=== PATIENT | female | born 1980 | race Caucasian/White ===

== ENCOUNTER → 2018-07-06 | Outpatient (CLI) | payer BC ==
[~2018-07-06] MED LIST: ANTIBIOTIC; ASPIRIN 32325 MG/TAB PO; DROSPIRENONE; GLUCOSAMINE/MSM1 TAB PO; LOFIBRA134 MG PO; OMEGA-3 FISH1200 MG PO; SIMCOR 1000 MG-1 TER PO; ZOFRAN ODT4 MG PO; [UNRECOGNIZED DRUG - MIXTURE]
== END ==
LOC: COL.RAD 12:36
DX: E04.1 Nontoxic single thyroid nodule (principal)

== ENCOUNTER → 2021-02-12 | Outpatient (CLI) | payer BC | LOC: COL.LAB 16:50 | DX: R05 Cough (principal) ==

== ENCOUNTER 2021-12-21 07:09 | Outpatient (CLI) | payer BC ==
[~2021-12-21] VITALS: Ht 170.2 cm; Wt 116.4 kg
[2021-12-21] MEDS ORDERED: GLUCOPHAGE1000 MG PO (07:51)
[2021-12-21] MEDS ORDERED: PRINIVIL20 MG PO (07:52)
[2021-12-21] MEDS ORDERED: TRICOR145 MG PO (07:52)
[2021-12-21] MEDS ORDERED: CRESTOR 10MG10 MG PO (07:53)
[2021-12-21] MEDS ORDERED: ALLEGRA 180MG180 MG PO (07:53)
[2021-12-21 07:54] VITALS: BP 136/80; PULSE 80; TEMP 98
[2021-12-21 08:20] LABS: BASO # 0.1 K/mm3 (0.0-0.2); BASO % 1.1 % (0.0-2.0); EOS # 0.4 K/mm3 (0.0-0.7); EOS % 5.6 % (0.0-4.0); GRAN # 3.8 K/mm3 (1.4-6.5); GRAN % 51.4 % (42.2-75.2); LYMPH # 2.5 K/mm3 (1.2-3.4); LYMPH % 33.7 % (20.0-51.0); MEAN CELL VOLUME 86 fl (80.0-100.0); MEAN CORPUSCULAR HEMOGLOBIN 28 pg (27-31); MEAN CORPUSCULAR HGB CONC 33 g/dl (33.0-37.0); MEAN PLATELET VOLUME 8.8 fl (7.4-10.4); MONO # 0.6 K/mm3 (0.1-0.6); MONO % 7.9 % (1.7-9.3); PLATELET COUNT 445 K/mm3 (130-400); RED BLOOD COUNT 4.22 M/mm3 (4.10-5.30); REDCELL DISTRIBUTION WIDTH-CV 12.3 % (11.5-14.5)
[2021-12-21 08:30] LABS: HEMATOCRIT 36.1 % (37.0-47.0)
[2021-12-21 09:40] VITALS: BP 109/58; PULSE 74; TEMP 98.3
--- NOTE | 2021-12-21 09:40 | NUR ---
0940: Patient arrived back into [facility] from PACU. Report received from STEPHEN Pena. Patient drowsy but arousable. Patient to lay flat for 10 minutes. Vital signs stable on room air. at bedside. Call light within reach. 0950: Patient sitting up. Requesting blueberry muffin and water. Denies pain or nausea at this time. 1010: Patient continues to do well denies pain or nausea. Tolerated food and drink well. Vital signs stable on room air. 1020: Patient meets discharge criteria. IV removed without complications. Went through discharge instructions with patient and . Questions answered. Patient to get dressed with assistance from . 1030: Patient escorted to patient entrance via wheelchair. along side. Patient got into personal vehicle and left in the care of her , Freddie.
[2021-12-21 09:55] VITALS: BP 114/65; PULSE 68
[2021-12-21 10:10] VITALS: BP 108/61; PULSE 69
== END 2021-12-21 10:35 | disposition home or self-care (01) ==
LOC: SDCO 07:09
PROVIDERS: Pathology Anatomic Pathology & Clinical Pathology
DX: D47.4 Osteomyelofibrosis (principal); D72.829 Elevated white blood cell count, unspecified
CPT/HCPCS: J2704; J3010; J7120

== ENCOUNTER → 2023-06-16 | Outpatient (CLI) | payer BC ==
[~2023-06-16] MED LIST changes: +ALLEGRA 180MG180 MG PO; +CRESTOR 10MG10 MG PO; +GLUCOPHAGE1000 MG PO; +PRINIVIL20 MG PO; +TRICOR145 MG PO
== END ==
LOC: MC.RAD 08:00
DX: Z12.31 Encounter for screening mammogram for malignant neoplasm of breast (principal)

== ENCOUNTER → 2024-01-20 | Outpatient (CLI) | payer BC ==
[~2024-01-20] MED LIST changes: +Iohexol 300 - 100 ML VIAL IV ONE; +NS 100 ML IV SCH
[2024-01-20 14:34] LABS: BASO # 0.1 K/mm3 (0.0-0.2); BASO % 0.9 % (0.0-2.0); EOS # 1.6 K/mm3 (0.0-0.7); EOS % 13.4 % (0.0-4.0); GRAN # 5.5 K/mm3 (1.4-6.5); GRAN % 47.3 % (42.2-75.2); HEMATOCRIT 37.4 % (37.0-47.0); HEMOGLOBIN 12.8 g/dl (12.5-16.0); LYMPH # 3.4 K/mm3 (1.2-3.4); MEAN CELL VOLUME 88 fl (80.0-100.0); MEAN CORPUSCULAR HEMOGLOBIN 30 pg (27-31); MEAN CORPUSCULAR HGB CONC 34 g/dl (33.0-37.0); MEAN PLATELET VOLUME 8.9 fl (7.4-10.4); MONO # 1.1 K/mm3 (0.1-0.6); MONO % 9.1 % (1.7-9.3); PLATELET COUNT 351 K/mm3 (130-400); RED BLOOD COUNT 4.25 M/mm3 (4.10-5.30)
== END ==
LOC: COL.RAD 13:03
PROVIDERS: Physician Assistant
DX: H02.846 Edema of left eye, unspecified eyelid (principal)
CPT/HCPCS: Q9967

== ENCOUNTER 2024-02-05 09:43 | Emergency (ER) | payer BC ==
[~2024-02-05] VITALS: Ht 170.2 cm; Wt 118.2 kg
[~2024-02-05 09:43] MED LIST changes: -Iohexol 300 - 100 ML VIAL IV ONE; -NS 100 ML IV SCH
[2024-02-05 11:44] LABS: ALBUMIN 3.5 g/dL (3.5-5.0); BILIRUBIN,TOTAL 0.3 mg/dL (0.2-1.2); CALCIUM 9.3 mg/dL (8.4-10.2); CREATININE, serum 0.63 mg/dL (0.57-1.11); POTASSIUM 4.2 mEq/L (3.5-4.5); TOTAL PROTEIN 6.5 g/dl (6.2-8.1)
[2024-02-05 12:15] LABS: BASO # 0.1 K/mm3 (0.0-0.2); BASO % 0.7 % (0.0-2.0); EOS # 1.2 K/mm3 (0.0-0.7); EOS % 9.6 % (0.0-4.0); GRAN # 7.1 K/mm3 (1.4-6.5); GRAN % 55.8 % (42.2-75.2); HEMATOCRIT 38.6 % (37.0-47.0); HEMOGLOBIN 12.5 g/dl (12.5-16.0); LYMPH # 3.2 K/mm3 (1.2-3.4); LYMPH % 25.1 % (20.0-51.0); MEAN CELL VOLUME 93 fl (80.0-100.0); MEAN CORPUSCULAR HEMOGLOBIN 30 pg (27-31); MEAN CORPUSCULAR HGB CONC 32 g/dl (33.0-37.0); MEAN PLATELET VOLUME 8.7 fl (7.4-10.4); MONO % 7.9 % (1.7-9.3); PLATELET COUNT 369 K/mm3 (130-400); RED BLOOD COUNT 4.17 M/mm3 (4.10-5.30); REDCELL DISTRIBUTION WIDTH-CV 12.5 % (11.5-14.5)
[2024-02-05] MEDS ORDERED: Acetaminophen 500 MG TAB PO ONE (12:15)
[2024-02-05] MEDS ORDERED: Iohexol 300 - 100 ML VIAL IV ONE (12:44)
[2024-02-05] MEDS ORDERED: NS 100 ML IV SCH (12:44)
[2024-02-05 15:46] VITALS: BP 129/91; PULSE 84; TEMP 98
== END 2024-02-05 15:46 | disposition short-term general hospital (02) ==
LOC: COL.ER 09:43
PROVIDERS: Physician Assistant
DX: H05.012 Cellulitis of left orbit (principal)
CPT/HCPCS: Q9967

== ENCOUNTER → 2024-03-29 | Outpatient (CLI) | payer BC ==
[~2024-03-29] MED LIST changes: +Iohexol 300 - 100 ML VIAL IV ONE; +NS 100 ML IV SCH
== END ==
LOC: COL.RAD 09:54
DX: H05.10 Unspecified chronic inflammatory disorders of orbit (principal)
CPT/HCPCS: Q9967